=== PATIENT | male | born 1965 | race Caucasian/White ===

== ENCOUNTER → 2021-11-23 14:15 | Outpatient (CLI) | payer OTHER, SELFPAY ==
[2021-11-23 17:45] LABS: COVID19 -Nasal RAPID POSITIVE (Negative)
== END ==
PROVIDERS: Family Provider Internal Medicine; PCP Internal Medicine; Referring Provider Physician Assistant; Visit Provider Physician Assistant
DX: U07.1 COVID-19 (principal); Z20.822 Contact with and (suspected) exposure to COVID-19; R52 Pain, unspecified
CPT/HCPCS: 87635

== ENCOUNTER → 2022-09-10 07:22 | Outpatient (CLI) | payer OTHER, SELFPAY ==
--- NOTE | 2022-09-10 07:24 | DI.RAD.S_ITS ---
PROCEDURE: XR KNEE LT 3V INDICATIONS: left knee pain TECHNIQUE: 3 views of the knee were acquired. COMPARISON: None. FINDINGS: Bones: No acute fractures or dislocations. No suspicious bony lesions. Tiny marginal osteophytes are seen at the medial and anterior compartment. There is a suprapatellar enthesophyte. Soft tissues: No joint effusion. No suspicious soft tissue calcifications. IMPRESSION: Minimal osteoarthrosis. No acute osseous abnormality. If the symptoms persist, consider cross sectional imaging such as MRI or CT for further assessment. Approved by: Bayron Marley M.D. on 09/10/2022 at 10:25
[2022-09-10 08:41] LABS: Hemoglobin A1C% w Est Avg Glu 5.9 % (4.0-6.0)
[2022-09-10 08:50] LABS: Alanine Aminotransferase 34 IU/L (<50); Albumin 4.4 g/dL (3.5-5.0); Albumin Globulin Ratio 1.5 (1.0-2.8); Alkaline Phosphatase 73 U/L (38-126); Aspartate Aminotransferase 35 IU/L (17-59); Bilirubin Total 0.6 mg/dL (0.2-1.3); Blood Urea Nitrogen 20 mg/dL (9-20); Calcium 9.3 mg/dL (8.4-10.2); Carbon Dioxide 28 mmol/L (22-32); Chloride 102 mmol/L (98-107); Cholesterol 187 mg/dL (140-199); Estimated Glomerular Filt Rate > 60 mL/min (>60); Glucose 119 mg/dL (70-100); HDL Cholesterol 27 mg/dL (40-60); Potassium 4.3 mmol/L (3.4-5.1); Sodium 139 mmol/L (137-145); Total Protein 7.4 g/dL (6.3-8.2)
[2022-09-10 08:58] LABS: HEMOLYSIS 51 (0-50); Triglycerides 877 mg/dL (35-150)
[2022-09-10 09:02] LABS: LDL Cholesterol Direct 37 mg/dL (<100)
[2022-09-10 09:20] LABS: Prostate Specific Antigen Scrn 0.558 ng/mL (0.1-4.0)
== END ==
PROVIDERS: Family Provider Internal Medicine; PCP Internal Medicine; Referring Provider Internal Medicine; Visit Provider Internal Medicine
DX: G89.29 Other chronic pain (principal); Z12.5 Encounter for screening for malignant neoplasm of prostate; M25.562 Pain in left knee; E78.1 Pure hyperglyceridemia; R73.9 Hyperglycemia, unspecified
CPT/HCPCS: 36415; 73562; 80053; 80061; 83036; 83721; G0103

== ENCOUNTER → 2023-01-19 09:29 | Outpatient (CLI) | payer OTHER, SELFPAY ==
[2023-01-19 10:26] LABS: Alanine Aminotransferase 39 IU/L (<50); Albumin 4.4 g/dL (3.5-5.0); Albumin Globulin Ratio 1.6 (1.0-2.8); Alkaline Phosphatase 65 U/L (38-126); Aspartate Aminotransferase 28 IU/L (17-59); BUN Creatinine Ratio 13.7 (6-22); Bilirubin Total 0.8 mg/dL (0.2-1.3); Blood Urea Nitrogen 13 mg/dL (9-20); Calcium 8.7 mg/dL (8.4-10.2); Carbon Dioxide 27 mmol/L (22-32); Chloride 103 mmol/L (98-107); Cholesterol 149 mg/dL (140-199); Estimated Glomerular Filt Rate > 60 mL/min (>60); Globulin 2.7 g/dL (1.7-4.1); Glucose 123 mg/dL (70-100); HDL Cholesterol 29 mg/dL (40-60); HEMOLYSIS < 15 (0-50); Potassium 4.2 mmol/L (3.4-5.1); Sodium 139 mmol/L (137-145); Total Protein 7.1 g/dL (6.3-8.2); Triglycerides 501 mg/dL (35-150)
[2023-01-19 10:37] LABS: LDL Cholesterol Direct 33 mg/dL (<100)
== END ==
PROVIDERS: Family Provider Internal Medicine; PCP Internal Medicine; Referring Provider Internal Medicine; Visit Provider Internal Medicine Cardiovascular Disease
DX: E78.1 Pure hyperglyceridemia (principal); Z79.899 Other long term (current) drug therapy
CPT/HCPCS: 36415; 80053; 80061; 83721

== ENCOUNTER → 2023-04-21 11:11 | Outpatient (CLI) | payer OTHER, SELFPAY ==
--- NOTE | 2023-04-21 11:13 | DI.US.S_ITS ---
PROCEDURE: US ABDOMEN LIMITED INDICATIONS: ENLARGED LYMPH NODES TECHNIQUE: Real-time focused scanning was performed of the abdomen, with image documentation. COMPARISON: None. FINDINGS: Limited imaging of the left lower quadrant and left inguinal region demonstrates small nondescript lymph nodes measuring 1.4 cm x 1.1 cm and 1.4 cm x 2.3 cm respectively. IMPRESSION: Nonspecific lymph nodes in the left groin, not abnormally enlarged. Dictated by: Steve Coffey M.D. on 04/21/2023 at 18:40 Approved by: Steve Coffey M.D. on 04/21/2023 at 18:42
== END ==
PROVIDERS: Family Provider Internal Medicine; PCP Internal Medicine; Referring Provider Nurse Practitioner Primary Care; Visit Provider Nurse Practitioner Primary Care
DX: R59.9 Enlarged lymph nodes, unspecified (principal)
CPT/HCPCS: 76705

== ENCOUNTER → 2023-04-21 11:13 | Outpatient (CLI) | payer OTHER, SELFPAY ==
[2023-04-21 12:57] LABS: Alanine Aminotransferase 40 IU/L (<50); Albumin 4.6 g/dL (3.5-5.0); Albumin Globulin Ratio 1.9 (1.0-2.8); Alkaline Phosphatase 73 U/L (38-126); Aspartate Aminotransferase 27 IU/L (17-59); BUN Creatinine Ratio 18.8 (6-22); Bilirubin Total 0.8 mg/dL (0.2-1.3); Blood Urea Nitrogen 19 mg/dL (9-20); Calcium 9.2 mg/dL (8.4-10.2); Carbon Dioxide 30 mmol/L (22-32); Chloride 100 mmol/L (98-107); Cholesterol 136 mg/dL (140-199); Estimated Glomerular Filt Rate > 60 mL/min (>60); Globulin 2.4 g/dL (1.7-4.1); Glucose 135 mg/dL (70-100); HDL Cholesterol 35 mg/dL (40-60); HEMOLYSIS < 15 (0-50); LDL Cholesterol Calculated 55 mg/dL (<100); Potassium 4.4 mmol/L (3.4-5.1); Sodium 138 mmol/L (137-145); Triglycerides 230 mg/dL (35-150)
[2023-04-21 13:08] LABS: LDL Cholesterol Direct 59 mg/dL (<100)
== END ==
PROVIDERS: Family Provider Internal Medicine; PCP Internal Medicine; Referring Provider Internal Medicine; Visit Provider Internal Medicine
DX: E78.1 Pure hyperglyceridemia (principal)
CPT/HCPCS: 36415; 80053; 80061; 83721

== ENCOUNTER → 2024-12-31 08:46 | Outpatient (CLI) | payer BC, SELFPAY | LOC: CAR 08:47 | PROVIDERS: Family Provider Internal Medicine; PCP Internal Medicine; Referring Provider Internal Medicine; Visit Provider Internal Medicine | DX: I49.9 Cardiac arrhythmia, unspecified (principal) | CPT/HCPCS: 93242 ==

== ENCOUNTER → 2025-02-05 12:42 | Outpatient (CLI) | payer BC, SELFPAY ==
--- NOTE | 2025-02-05 12:43 | DI.ECHO.S_ITS ---
[facility] +---------+ [facility] : : [address] : : [place] : : [id number] : : Phone: [phone] Echocardiogram Report + + :Name: KAMERON FLOYD Study Date: 02/05/2025 Height: 71 in : :Hospital ReadingLocation: Weight: 193 lb : : Gender: Male BSA: 2.1 m2 : :: 1965 Age: 59 yrs BP: 148/101 mmHg: :Reason For Study: EVALUATE FOR STRUCTURAL HEART DISEASE : :Ordering Physician: ORION, : :ROSLYN Dias Performed By: Jocy Costello : :Referring: ROSLYN SEARS : + + Interpretation Summary The ejection fraction is estimated to be 55-60%. Diastolic parameters suggest probable normal left ventricular diastolic function and normal filling pressures. The right ventricle is normal in size and function. There is mild mitral regurgitation. There is trace aortic regurgitation. Pulmonary artery pressures cannot be estimated because of the lack of a measurable TR jet velocity. Procedure: A two-dimensional transthoracic echocardiogram with color flow and Doppler was performed. The study quality was technically adequate. There is no prior echocardiogram noted for this patient. The patient was in sinus bradycardia with heart rates between 53-60 bpm during the exam. Left Ventricle: The left ventricle is normal in size and wall thickness. The ejection fraction is estimated to be 55-60%. Diastolic parameters suggest probable normal left ventricular diastolic function and normal filling pressures. Right Ventricle: The right ventricle is normal in size and function. Atria: The left atrial size is normal. Right atrial size is normal. There is no Doppler evidence for an interatrial shunt. Mitral Valve: The mitral valve leaflets appear to open well. There is no mitral annular calcification. There is mild mitral regurgitation. Aortic Valve: The aortic valve is trileaflet. The aortic valve opens well. There is no aortic valve stenosis. There is trace aortic regurgitation. Tricuspid Valve: The tricuspid valve leaflets are thin and pliable. There is trace tricuspid regurgitation. Pulmonary artery pressures cannot be estimated because of the lack of a measurable TR jet velocity. Pulmonic Valve: The pulmonic valve leaflets are thin and pliable; valve motion is normal. There is mild pulmonic regurgitation. Great Vessels: The aortic root is normal size. The dimensions of the ascending aorta are normal. The inferior vena cava was not well visualized. Pericardium/ Pleura There is no pericardial effusion. There is no pleural effusion. MMode/2D Measurements & Calculations LVIDd: 5.3 cm LVOT diam: 2.4 cm LVIDs: 3.4 cm Ao root diam: 3.8 cm FS: 35.2 % asc Aorta Diam: 3.4 cm EPSS: 0.53 cm Ao Arch Diam (Prox Trans): 3.2 cm IVSd: 0.68 cm LVPWd: 0.65 cm LV boss. diameter/BSA (cm/m^2): 2.5 LV sys. diameter/BSA (cm/m^2): 1.6 LA A2 area: 11.2 cm2 RA long axis: 4.8 cm LA A4 area: 11.9 cm2 RA area: 13.2 cm2 LA length (vol): 3.9 cm RA vol: 30.4 ml LA vol: 29.0 ml RA : 14.6 ml/m2 LA vol index: 14.0 ml/m2 RVD1 (basal): 3.9 cm RVD2 (mid): 4.4 cm TAPSE: 1.6 cm Doppler Measurements & Calculations Ao V2 max: 94.4 cm/sec LVOT Max Alfredo: 87.5 cm/sec Ao V2 mean: 68.7 cm/sec LV V1 max P.1 mmHg Ao max P.6 mmHg LV V1 VTI: 19.3 cm Ao mean P.1 mmHg HIRAM(I,D): 4.2 cm2 Ao V2 VTI: 20.0 cm HIRAM(V,D): 4.0 cm2 sev ratio: 0.97 HIRAM indexed to BSA (cm^2/m^2): 2.0 MV E max alfredo: 50.0 cm/sec TR max alfredo: 199.6 cm/sec MV A max alfredo: 54.5 cm/sec TR max P.9 mmHg MV E/A: 0.92 PA V2 max: 75.2 cm/sec Med Peak E' Alfredo: 6.4 cm/sec PA V2 mean: 52.1 cm/sec E/E' med: 7.8 PA mean P.2 mmHg Lat Peak E' Alfredo: 6.8 cm/sec PA pr(Accel): 18.6 mmHg E/E' lat: 7.4 E/e' average: 7.6 MV dec time: 0.19 sec SV([facility]): 84.0 ml Reading Physician:[id number] PM
== END ==
PROVIDERS: Family Provider Internal Medicine; PCP Internal Medicine; Referring Provider Internal Medicine; Visit Provider Internal Medicine
DX: I34.0 Nonrheumatic mitral (valve) insufficiency (principal); I37.1 Nonrheumatic pulmonary valve insufficiency; I49.3 Ventricular premature depolarization
CPT/HCPCS: 93306